=== PATIENT | male | born 1995 | race Caucasian/White ===

== ENCOUNTER 2020-11-05 18:58 | Emergency (ER) | payer OTHER ==
[~2020-11-05] VITALS: Ht 167.6 cm; Wt 59.1 kg
[2020-11-05] MEDS ORDERED: SPIR25 PO (19:51)
[2020-11-05] MEDS ORDERED: [UNRECOGNIZED DRUG - CODE] PO (19:51)
[2020-11-05 21:06] VITALS: BP 121/76
[2020-11-05] MEDS ORDERED: HYDROCODONE/ACETAMINOPHEN 5-325 MG TABLET PO ONE (21:30)
== END 2020-11-05 21:25 | disposition home or self-care (01) ==
LOC: EMS 18:58
DX: S52.002A Unspecified fracture of upper end of left ulna, initial encounter for closed fracture (principal); S00.211A Abrasion of right eyelid and periocular area, initial encounter; Y04.2XXA Assault by strike against or bumped into by another person, initial encounter; Y93.89 Activity, other specified; Y92.89 Other specified places as the place of occurrence of the external cause; Y99.8 Other external cause status
CPT/HCPCS: 99283